=== PATIENT | male | born 1955 | race Caucasian/White ===

== ENCOUNTER 2023-11-22 06:46 | Day surgery (SDC) | payer MEDICARE, BC ==
--- NOTE | 2023-11-21 15:03 | HP ---
DATE: 11/22/2023 HISTORY OF PRESENT ILLNESS: Patient is a 68 year-old male. Presents with complaints of a rectal perianal abscess. It looks like this patient had been seen actually back in June for this and I believe that we had signed him up for surgery and I think the patient had to cancel for some personal issues. He currently has had a round of cephalexin from the [facility]. He states it has flared up twice now since June. He did say that incidentally he had had a Cologuard test that was negative. He is complaining of discharge and bleeding at times at the site now. He was noted to have a 9 o'clock, 2 cm indurated area and he also has some external hemorrhoids. This patient was evaluated by Dr. Sheng Estrada initially back in June. PAST MEDICAL HISTORY: Diabetes, hyperlipidemia, hypertension, bladder cancer, allergic rhinitis, insomnia, arthritis. CURRENT MEDICATIONS: Metformin, Zetia, Fenofibrate, Lantus, Lisinopril, metoprolol, empagliflozin, apixaban, vitamin B12, Albuterol, Alogliptin, isotretinoin. ALLERGIES: CODEINE, DEMEROL, SIMVASTATIN. PAST SURGERIES: Hand surgery, cardiac cath, colon resection for colon cancer, skin lesions, lithotripsy, knee scope, rotator repair, procedure for a bladder cancer. SOCIAL HISTORY: Current smoker. FAMILY HISTORY: None reported. REVIEW OF SYSTEMS: CONSTITUTIONAL: Denies fever or chills. CHEST: Denies shortness of breath. CVS: Denies chest pain. ABDOMEN: Denies abdominal pain. PHYSICAL EXAMINATION: GENERAL: No acute distress. CHEST: Nonlabored. No shortness of breath. CVS: Regular rate and rhythm. ABDOMEN: Soft. RECTAL: 9-10 o'clock anal fistula, mild tenderness. External hemorrhoids. No drainage seen today. IMPRESSION: ANAL FISTULA, EXTERNAL HEMORRHOIDS. PLAN: Excision of anal fistula with possible seton placement with Dr. Patricio. Sean. This report was dictated for Dr. Estrada by Rohini Bowling NP.
[2023-11-22] MEDS ORDERED: EXPAREL 133 MG/10 ML VIAL IJ ONE (06:47)
[2023-11-22] MEDS ORDERED: Lactated Ringers 1,000 ML IV ONE (07:09)
[2023-11-22] MEDS: Lactated Ringers 1,000 ML IV SCH (07:21)
[2023-11-22 07:50] VITALS: RESP 18
[2023-11-22] MEDS ORDERED: Sensorcaine 0.25% 10 ML ONE (09:10)
[2023-11-22] MEDS ORDERED: Xylocaine-Mpf 2% 5 Ml Vial ONE (09:16)
[2023-11-22] MEDS ORDERED: Zofran 4 MG/2 ML VIAL ONE (09:16)
[2023-11-22] MEDS ORDERED: Decadron 4 MG INJ ONE (09:16)
[2023-11-22] MEDS ORDERED: DIPRIVAN 200 MG/20 ML IV ONE (09:17)
[2023-11-22] MEDS ORDERED: Zemuron 100 MG/10 ML ONE (09:19)
[2023-11-22] MEDS ORDERED: BRIDION 200MG/2ML IV ONE (09:22)
[2023-11-22] MEDS ORDERED: SUBLIMAZE 100 MCG/2 ML ONE ×2 (09:23→10:02)
[2023-11-22] MEDS ORDERED: OFIRMEV 100 ML IV ONE (09:25)
[2023-11-22] MEDS ORDERED: LEVAQUIN IV ONE (10:07)
[2023-11-22] MEDS ORDERED: D5W IV ONE (10:07)
[2023-11-22 11:08] VITALS: TEMP 97.4
[2023-11-22 11:28] VITALS: BP 139/74; PULSE 66; O2SAT 94
--- NOTE | 2023-11-23 08:56 | OP ---
SURGERY DATE/TIME: 11/22/2023 0926 PREOPERATIVE DIAGNOSIS: Probable anal fistula. POSTOPERATIVE DIAGNOSIS: The patient had about 50 cutaneous/subcutaneous tracks, pores or cysts. PROCEDURES: 1) Exam under anesthesia of the anal area. 2) Evacuation or expression of about 50 perianal pustules. SURGEON: Sheng Estrada M.D. LEGAL JOB TITLES: Suman Prescott D.O., Family Practice Resident 3. ANESTHESIA: General. COMPLICATIONS: None. CONDITION: Stable. DESCRIPTION OF PROCEDURE: The patient taken to surgery. Lithotomy. Anal digital examination. He did not have any true fistulas. He had a couple of these that were infected. One was at 12 and one was at 9 but he had about 50 pustules. With care and patience, while the patient was asleep these were all expressed. He had some external anal tags that we left alone. He is really quite a bit better at this time about 90% better. I have left him script for Cipro as two of these were infected with a little bit of infected purulence. I think this will certainly help with a week course of Cipro but at least he has these cleaned up at this time.
== END 2023-11-22 11:30 | disposition home or self-care (01) ==
LOC: SDC 06:46
PROVIDERS: ATTEND Surgery
DX: K60.3 Anal fistula (principal); E11.9 Type 2 diabetes mellitus without complications; Z85.51 Personal history of malignant neoplasm of bladder; K64.4 Residual hemorrhoidal skin tags
CPT/HCPCS: 82947; 93005; J1100; J1956; J2405; J2704; J3010

== ENCOUNTER 2024-12-15 08:38 | Emergency (ER) | payer MEDICARE, BC ==
--- NOTE | 2024-12-15 08:46 | ERPHSYRPT ---
- History of Present Illness Time Seen by Provider: 12/15/24 08:46 Source: patient, family Exam Limitations: no limitations Physician History: This is a 69-year-old diabetic white male patient of Dr. Guadarrama who presents with a perianal/posterior perineal right area of tenderness that spontaneously drained today prior to arrival. He is afebrile. The drainage was initially bloody followed by drainage of a large amount of pus per his report. The pain was sharp. The symptoms did improve after the subcutaneous mass spontaneously drained just prior to arrival to the emergency department. Patient has a history of diabetes, hypertension, COPD and is on Eliquis. He denies chest pain. He denies shortness of breath Timing/Duration: day(s) (2), improved Severity: mild Modifying Factors: Improves With: nothing Associated Symptoms: denies symptoms Allergies/Adverse Reactions: codeine Adverse Reaction (Verified 11/22/23 07:15) meperidine HCl [From Demerol] Adverse Reaction (Verified 11/22/23 07:15) Jlfmcov-RNZ-VnH Reductase Inhibitor [Ivdsuax-Foz-Dpx Reductase Inhibitor] Adverse Reaction (Verified 11/22/23 07:15) demerol Adverse Reaction (Uncoded 11/22/23 07:15) Home Medications: Cyanocobalamin (Vitamin B-12) [Vitamin B-12] 500 mcg PO DAILY 12/01/15 [History] Ezetimibe 10 mg [Zetia 10 MG] 10 mg PO DAILY 12/01/15 [History] Fenofibrate,Micronized 145 mg* [Tricor 145 MG] 145 mg PO DAILY 12/01/15 [History] Insulin Glargine [Lantus Insulin] 40 units SQ HS 12/01/15 [History] lisinopriL [Lisinopril] 40 mg PO BID 12/01/15 [History] Albuterol Sulfate [Proair Respiclick] 2 puffs IH UD 11/16/23 [History] Alogliptin Benzoate [Alogliptin] 25 mg PO UD 11/16/23 [History] Apixaban [Eliquis] 5 mg PO UD 11/16/23 [History] Empagliflozin [Jardiance] 10 mg PO DAILY 11/16/23 [History] ISOtretinoin [Accutane] 40 mg PO UD 11/16/23 [History] Metformin HCl 500 mg [Glucophage 500 MG] 500 mg PO BID 11/16/23 [History] Metoprolol Tartrate 50 mg [Lopressor 50 MG] 50 mg PO UD 11/16/23 [History] Insulin Lispro [Humalog] 10 units SQ TID 11/22/23 [History] Hx Influenza Vaccination/Date Given: Yes Hx Pneumococcal Vaccination/Date Given: Yes Travel Risk - International Travel Have you traveled outside of the country in past 3 weeks: No - Emerging Infectious Disease Are you exhibiting symptoms associated with any current EIDs: No - Review of Systems Constitutional: No Symptoms Eyes: No Symptoms Ears, Nose, & Throat: No Symptoms Respiratory: No Symptoms Cardiac: No Symptoms Abdominal/Gastrointestinal: No Symptoms Genitourinary Symptoms: No Symptoms Musculoskeletal: No Symptoms Skin: Induration (Perianal right side without expressible pus or drainage) Neurological: No Symptoms Psychological: No Symptoms Endocrine: No Symptoms Hematologic/Lymphatic: No Symptoms Immunological/Allergic: No Symptoms All Other Systems: Reviewed and Negative - Past Medical History Pertinent Past Medical History: Yes Neurological History: Migraines ENT History: No Pertinent History Cardiac History: High Cholesterol, Hypertension Respiratory History: No Pertinent History, Sleep Apnea Endocrine Medical History: Diabetes Type II Musculoskeletal History: Arthritis, Degenerative Disk Disease, Fractures, Rheumatoid Arthritis GI Medical History: No Pertinent History History: No Pertinent History Psycho-Social History: Depression Male Reproductive Disorders: No Pertinent History Other Medical History: lt wrist, ring finer, little finger, metatarses. both little toes, metacarpels. bladder cancer - Past Surgical History Past Surgical History: Yes Neuro Surgical History: No Pertinent History Cardiac: No Pertinent History Respiratory: No Pertinent History Gastrointestinal: Appendectomy, Exploratory Laparoscopy Genitourinary: Other Musculoskeletal: Orthopedic Surgery Male Surgical History: No Pertinent History Other Surgical History: both ankles, both knees. exploratory Lap. rotator cuff. carpal tunnel. bladder cancer - Social History Smoking Status: Former smoker How long have you smoked: . Exposure to second hand smoke: No Drug Use: none - Nursing Vital Signs Nursing Vital Signs: Initial Vital Signs Temperature 97.9 F 12/15/24 08:48 Pulse Rate 78 12/15/24 08:48 Respiratory Rate 20 12/15/24 08:48 Blood Pressure 169/87 12/15/24 08:48 O2 Sat by Pulse Oximetry 96 12/15/24 08:48 Pain Scale Pain Intensity 7 - Physical Exam General Appearance: no apparent distress, alert, thin Eye Exam: PERRL/EOMI, eyes nml inspection Ears, Nose, Throat Exam: normal ENT inspection, moist mucous membranes Neck Exam: normal inspection, non-tender, supple, full range of motion Respiratory Exam: airway intact, No chest tenderness, No respiratory distress Gastrointestinal/Abdomen Exam: No tenderness Rectal Exam: other (right perianal induration, no odor, no redness, no expressible pus) Back Exam: normal inspection, normal range of motion, No CVA tenderness, No vertebral tenderness Extremity Exam: normal inspection, normal range of motion, pelvis stable Neurologic Exam: alert, oriented x 3, cooperative, 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, normal mood/affect, nml cerebellar function, nml station & gait, sensation nml Skin Exam: normal color, warm, dry Lymphatic Exam: No adenopathy SpO2 Interpretation: normal O2 Delivery: Room Air - Course Nursing assessment & vital signs reviewed: Yes - Progress Progress: improved, pain not gone completely, re-examined Progress Note: 12/15/24 09:43 I medical decision making in the assignment of low complexity to this patient's medical issue today is based on review of the patient's past medical history, reviewed patient's medication list, reviewed patient drug allergy list, history present illness and physical findings on examination. The workup does not require any radiographic or laboratory studies. Differential diagnosis includes but is not limited to cellulitis, abscess, indurated tissue This patient's abscess appears to have drained spontaneously. He has significantly less pain. There is no odor present. There is no evidence of cellulitis. The tissue is indurated. There is no expressible pus present. Together, we decided that the patient will be placed on antibiotics. Additionally, the patient will have antibiotics remotely sent to his pharmacy and he will undergo sitz bath 3 times a day with Epsom salts. He will return to the emergency department in 24 hours for recheck. Counseled pt/family regarding: diagnosis, need for follow-up Medical Desision Making - Diagnostic Testing Diagnostic test were ordered, analyzed, and reviewed by me: No - Risk of complications The pt has a mod risk of morbidity or mortality based on: Need for prescription drug management - Departure Departure Disposition: Home Clinical Impression: Perianal abscess Condition: Stable Critical Care Time: No Referrals: PARUL GUADARRAMA MD [Primary Care Provider] - Follow up/PCP as directed Additional Instructions: Use Tylenol for pain control. Sitz bath with Epsom salts and warm water 3 times a day. Take your antibiotics and other medication as prescribed. Return to the emergency department 24 hours for recheck of perianal drainage site Prescriptions: Smz/Tmp Ds Tablet [Bactrim Ds Tablet] 1 udtab PO BID #14 tablet
[2024-12-15 08:53] VITALS: TEMP 97.9
[2024-12-15 09:41] VITALS: RESP 18; O2SAT 94
[2024-12-15] MEDS: BACTRIM DS TABLET PO ONE (09:42)
[2024-12-15] MEDS ORDERED: BACTRIM DS TABLET PO ONE (09:42)
[2024-12-15 10:17] VITALS: BP 124/66; PULSE 63
== END 2024-12-15 10:23 | disposition home or self-care (01) ==
LOC: ED 08:38
DX: L02.215 Cutaneous abscess of perineum (principal); E11.9 Type 2 diabetes mellitus without complications; I10 Essential (primary) hypertension; Z79.01 Long term (current) use of anticoagulants; Z79.4 Long term (current) use of insulin; Z79.84 Long term (current) use of oral hypoglycemic drugs; Z79.899 Other long term (current) drug therapy
CPT/HCPCS: 99281; 99283; A9270-GY

== ENCOUNTER 2024-12-16 09:21 | Observation (INO) | payer MEDICARE, BC ==
--- NOTE | 2024-12-16 10:41 | ERPHSYRPT ---
- History of Present Illness Time Seen by Provider: 12/16/24 10:35 Source: patient Exam Limitations: no limitations Patient Subjective Stated Complaint: seen here yesterday and was told to come back to have wound looked at within 24 hours, so I came back Triage Nursing Assessment: "Wound" located on perineum between rectum and scrotum. Redness and swollen area noted. Tender to touch. Physician History: 69-year-old male history of diabetes presents to our ED for a "wound check". Patient was in our ED yesterday for evaluation of a perineal abscess that is spontaneously drained. Patient was started on Bactrim. Patient was advised to return to our ED for an evaluation. Timing/Duration: yesterday, day(s) (2 to 3 days) Severity: moderate Modifying Factors: Improves With: medication Associated Symptoms: denies symptoms Allergies/Adverse Reactions: codeine Adverse Reaction (Verified 12/16/24 10:06) meperidine HCl [From Demerol] Adverse Reaction (Verified 12/16/24 10:06) Dzcirdw-KOR-IzY Reductase Inhibitor [Slatgps-Xpj-Lge Reductase Inhibitor] Adverse Reaction (Verified 12/16/24 10:06) demerol Adverse Reaction (Uncoded 12/16/24 10:06) Home Medications: Cyanocobalamin (Vitamin B-12) [Vitamin B-12] 500 mcg PO DAILY 12/01/15 [History] Ezetimibe 10 mg [Zetia 10 MG] 10 mg PO DAILY 12/01/15 [History] Fenofibrate,Micronized 145 mg* [Tricor 145 MG] 145 mg PO DAILY 12/01/15 [History] Insulin Glargine [Lantus Insulin] 40 units SQ HS 12/01/15 [History] lisinopriL [Lisinopril] 40 mg PO BID 12/01/15 [History] Albuterol Sulfate [Proair Respiclick] 2 puffs IH UD 11/16/23 [History] Alogliptin Benzoate [Alogliptin] 25 mg PO UD 11/16/23 [History] Apixaban [Eliquis] 5 mg PO UD 11/16/23 [History] Empagliflozin [Jardiance] 10 mg PO DAILY 11/16/23 [History] ISOtretinoin [Accutane] 40 mg PO UD 11/16/23 [History] Metformin HCl 500 mg [Glucophage 500 MG] 500 mg PO BID 11/16/23 [History] Metoprolol Tartrate 50 mg [Lopressor 50 MG] 50 mg PO UD 11/16/23 [History] Insulin Lispro [Humalog] 10 units SQ TID 11/22/23 [History] Hx Tetanus, Diphtheria Vaccination/Date Given: Yes Hx Influenza Vaccination/Date Given: No Hx Pneumococcal Vaccination/Date Given: Yes Immunizations Up to Date: Yes Travel Risk - International Travel Have you traveled outside of the country in past 3 weeks: No - Emerging Infectious Disease Are you exhibiting symptoms associated with any current EIDs: No - Review of Systems Constitutional: No Symptoms, No Fever, No Chills Eyes: No Symptoms Ears, Nose, & Throat: No Symptoms Respiratory: No Symptoms, No Cough, No Dyspnea Cardiac: No Symptoms, No Chest Pain, No Edema, No Syncope Abdominal/Gastrointestinal: No Symptoms, No Abdominal Pain, No Nausea, No Vomiting, No Diarrhea Genitourinary Symptoms: No Symptoms, No Dysuria Musculoskeletal: No Symptoms, No Back Pain, No Neck Pain Skin: No Symptoms, No Rash Neurological: No Symptoms, No Dizziness, No Focal Weakness, No Sensory Changes Psychological: No Symptoms Endocrine: No Symptoms Hematologic/Lymphatic: No Symptoms Immunological/Allergic: No Symptoms All Other Systems: Reviewed and Negative - Past Medical History Pertinent Past Medical History: Yes Neurological History: Migraines ENT History: No Pertinent History Cardiac History: High Cholesterol, Hypertension Respiratory History: No Pertinent History, Sleep Apnea Endocrine Medical History: Diabetes Type II Musculoskeletal History: Arthritis, Degenerative Disk Disease, Fractures, Rheumatoid Arthritis GI Medical History: No Pertinent History History: No Pertinent History Psycho-Social History: Depression Male Reproductive Disorders: No Pertinent History Other Medical History: lt wrist, ring finer, little finger, metatarses. both little toes, metacarpels. bladder cancer - Past Surgical History Past Surgical History: Yes Neuro Surgical History: No Pertinent History Cardiac: No Pertinent History Respiratory: No Pertinent History Gastrointestinal: Appendectomy, Exploratory Laparoscopy Genitourinary: Other Musculoskeletal: Orthopedic Surgery Male Surgical History: No Pertinent History Other Surgical History: both ankles, both knees. exploratory Lap. rotator cuff. carpal tunnel. bladder cancer - Social History Smoking Status: Former smoker How long have you smoked: 10 years Exposure to second hand smoke: Yes Drug Use: none - Social Determinants of Health Will the patient participate in the screening: Yes Do you worry about a steady place to live?: No Do you have any problems with any of the following?: No known problems In the past 12 months,have you had to go without utilities?: No Transportation Issues: No Has anyone in your support network made you feel unsafe?: No Have you or anyone in your house had to go w/o enough food: No - Nursing Vital Signs Nursing Vital Signs: Initial Vital Signs Temperature 98.2 F 12/16/24 09:21 Pulse Rate 68 12/16/24 09:21 Respiratory Rate 18 12/16/24 09:21 Blood Pressure 133/80 12/16/24 09:21 O2 Sat by Pulse Oximetry 96 12/16/24 09:21 Pain Scale Pain Intensity 6 - Physical Exam General Appearance: no apparent distress, alert Eye Exam: PERRL/EOMI, eyes nml inspection Ears, Nose, Throat Exam: normal ENT inspection, TMs normal, pharynx normal, moist mucous membranes Neck Exam: normal inspection, non-tender, supple, full range of motion Respiratory Exam: normal breath sounds, lungs clear, airway intact, No respiratory distress Cardiovascular Exam: regular rate/rhythm, normal heart sounds, normal peripheral pulses Gastrointestinal/Abdomen Exam: soft, normal bowel sounds, No tenderness, No mass Back Exam: normal inspection, normal range of motion, No CVA tenderness, No vertebral tenderness Extremity Exam: normal inspection, normal range of motion, pelvis stable Neurologic Exam: alert, oriented x 3, cooperative, normal mood/affect, sensation nml, No motor deficits Skin Exam: normal color, warm, dry, No rash Lymphatic Exam: No adenopathy SpO2 Interpretation: normal SpO2: 96 O2 Delivery: Room Air - Course Nursing assessment & vital signs reviewed: Yes - CT Exams Abdomen/Pelvis CT Interpretation: Tele-radiologist Report (Lung granuloma, liver cyst, renal cyst, left adrenal adenoma, perineal abscess with reactive lymphadenopathy) Ordered Tests: Active Orders 24 hr Category Date Time Status NPO Diet 12/16/24 13:31 Active ABDOMEN AND PELVIS W CONTRAST [CT] Stat Exams 12/16/24 10:44 Completed CBC W DIFF Stat Lab 12/16/24 10:47 Completed CMP Stat Lab 12/16/24 10:47 Completed Transfer Order Routine Transfer 12/16/24 Ordered Medication Summary Generic Name Dose Route Start Last Admin Trade Name Frekiran PRN Reason Stop Dose Admin Piperacillin Sod/Tazobactam 100 mls @ 200 mls/hr 12/16/24 13:27 12/16/24 13:37 Sod 3.375 gm/ Sodium Chloride IV 12/16/24 13:56 200 mls/hr STAT ONE 200 mls/hr Administration Vancomycin HCl 1 gm in 200 mls @ 125 mls/hr 12/16/24 13:30 Vancomycin 1 Gram/200 Ml Bag IV 12/16/24 15:05 STAT ONE Discontinued Medications Generic Name Dose Route Start Last Admin Trade Name Freq PRN Reason Stop Dose Admin Sodium Chloride Confirm 12/16/24 13:36 Sodium Chloride 100ml Mini-Bag Plus Administered 12/16/24 13:37 Dose 100 mls @ ud IV .STK-MED ONE Piperacillin Sod/Tazobactam Sod Confirm 12/16/24 13:36 Piperacillin/Tazobactam Sodium 3.375 Gm Vial Administered 12/16/24 13:37 Dose 3.375 gm IV .STK-MED ONE Lab/Rad Data: Laboratory Result Diagrams 12/16/24 10:47 12/16/24 10:47 Laboratory Results 12/16/24 12/16/24 Range/Units 10:47 10:47 WBC 13.0 H (4.23-9.07) x10^3/uL RBC 4.60 L (4.63-6.08) x10^6/uL Hgb 13.6 L (13.7-17.5) g/dL Hct 41.5 (40.1-51.0) % MCV 90.2 (79.0-92.2) fL MCH 29.6 (25.7-32.2) pg MCHC 32.8 (32.3-36.5) g/dL RDW 14.9 H (11.6-14.4) % Plt Count 363 H (163-337) x10^3/uL MPV 8.9 L (9.4-12.4) fL Gran % 62.2 (34.0-67.9) % Immature Gran % (Auto) 0.3 (0.001-0.429) % Nucleat RBC Rel Count 0.0 (0.00-0.2) % Eos # (Auto) 0.20 (0.04-0.54) x10^3/uL Immature Gran # (Auto) 0.04 H (0.001-0.031) x10^3u/L Absolute Lymphs (auto) 3.79 H (1.32-3.57) x10^3/uL Absolute Monos (auto) 0.81 (0.30-0.82) x10^3/uL Absolute Nucleated RBC 0.00 (0.00-0.012) x10^3u/L Lymphocytes % 29.1 (21.8-53.1) % Monocytes % 6.2 (5.3-12.2) % Eosinophils % 1.5 (0.8-7.0) % Basophils % 0.7 (0.2-1.2) % Absolute Granulocytes 8.09 H (1.78-5.38) x10^3/uL Basophils # 0.09 H (0.01-0.08) x10^3/uL Sodium 140 (135-145) mmol/L Potassium 4.3 (3.5-5.1) mmol/L Chloride 103 (98-107) mmol/L Carbon Dioxide 27 (22-30) mmol/L Anion Gap 14.3 (5-15) MEQ/L BUN 11 (9-20) mg/dL Creatinine 1.04 (0.66-1.25) mg/dL Estimated GFR 76.8 ML/MIN Glucose 86 (74-106) mg/dL Calcium 9.1 (8.4-10.2) mg/dL Total Bilirubin 0.50 (0.2-1.3) mg/dL AST 30 (17-59) U/L ALT 21 (0-50) U/L Alkaline Phosphatase 77 (38-126) U/L Serum Total Protein 8.4 H (6.3-8.2) g/dL Albumin 4.1 (3.5-5.0) g/dL - Progress Progress: improved Progress Note: 12/16/24 10:46 I spoke to Gabe Estrada at 10:42 AM. We will obtain labs and a CT abdomen pelvis to further assess the perineal area. Will contact general surgery with results I spoke to Gabe Snyder at approximately 1:25 PM. Patient will be started on Zosyn and vancomycin. Patient has a history of MRSA. Patient was given crackers and peanut butter as he was observed to be hypoglycemic with a blood sugar in the 50s. Patient is now n.p.o. 12/16/24 13:[address] Carcamo who excepts admission at 1:45 PM. Plan of care discussed with patient. He agrees to admission at [facility] for further evaluation and treatment. 12/16/24 13:47 69-year-old male presents to emergency department for evaluation of a perineal infection. Patient has started taking Bactrim antibiotics. Today's physical exam reveals the perineum to be tender swollen and red. CT with contrast of the perineal area was completed. There is a 3 x 4 cm walled off abscess in the perineum. I discussed the case with general surgery. The abscess will need to be drained. Plan of care discussed with patient. He agrees to admission at [facility] for further evaluation and treatment. Patient does have a leukocytosis on laboratory workup. Antibiotics initiated. Patient NPO. Vital stable. Patient voices no other complaints or concerns at this time. Portions of this note were created with voice recognition technology. There may be grammatical, spelling, punctuation or sound alike errors Complexity of problem addressed is moderate acute complicated. No critical care time. Complex of data reviewed and analyzed is extensive. Test ordered test reviewed results analyzed and correlated clinically with history and physical exam. Risk of complication and or risk of morbidity/mortality of patient management is high. Patient requires hospitalization for further evaluation and treatment. Vital stable. Time spent to admit patient is approximately 15 minutes. Plan of care established for shared decision making. No social determinants of health present to impede follow-up. Portions of this note were created with voice recognition technology. There may be grammatical, spelling, punctuation or sound alike errors 12/16/24 13:52 Counseled pt/family regarding: lab results, diagnosis, rad results - Departure Departure Disposition: Observation Clinical Impression: Perineal abscess, Leukocytosis, Lung granuloma, Liver cyst, Renal cyst, Adenoma of left adrenal gland, Reactive lymphadenopathy Condition: Stable Critical Care Time: No Referrals: PARUL GUADARRAMA MD [Primary Care Provider] - Follow up/PCP as directed
[2024-12-16 10:48] LABS: Absolute Neutrophil Ct (ANC) 8.09 x10^3/uL (1.78-5.38); BASOPHIL % 0.7 % (0.2-1.2); Basophil (Absolute #) 0.09 x10^3/uL (0.01-0.08); Eosinophil % 1.5 % (0.8-7.0); Hematocrit 41.5 % (40.1-51.0); Hemoglobin 13.6 g/dL (13.7-17.5); IMMATURE GRAN # 0.04 x10^3u/L (0.001-0.031); IMMATURE GRAN % 0.3 % (0.001-0.429); Lymphocyte (Absolute #) 3.79 x10^3/uL (1.32-3.57); Lymphocytes % 29.1 % (21.8-53.1); Mean Cell Volume 90.2 fL (79.0-92.2); Mean Corpuscular Hemoglobin 29.6 pg (25.7-32.2); Mean Corpuscular Hgb Concent. 32.8 g/dL (32.3-36.5); Mean Platelet Volume 8.9 fL (9.4-12.4); Monocyte (Absolute #) 0.81 x10^3/uL (0.30-0.82); Monocytes % 6.2 % (5.3-12.2); Neutrophil % 62.2 % (34.0-67.9); Platelet Count 363 x10^3/uL (163-337); Red Cell Distribution Width 14.9 % (11.6-14.4)
[2024-12-16 11:07] LABS: ALBUMIN 4.1 g/dL (3.5-5.0); ANION GAP 14.3 MEQ/L (5-15); BILIRUBIN,TOTAL 0.5 mg/dL (0.2-1.3); Calcium 9.1 mg/dL (8.4-10.2); Creatinine 1 1.04 mg/dL (0.66-1.25); EST GLOMERULAR FILTRATION RATE 76.8 ML/MIN; Potassium 4.3 mmol/L (3.5-5.1); Total Protein 8.4 g/dL (6.3-8.2)
--- NOTE | 2024-12-16 13:00 | XRAY ---
Indication: Perineum pain. Bleeding. Multiple contiguous axial images obtained through the abdomen and pelvis using 80 cc Isovue 370 contrast. Comparison: None Lung bases demonstrates dependent atelectasis and tiny calcified granulomas. No infiltrate or effusion. Heart not enlarged with scattered coronary calcifications. Incidental mediastinal and bilateral hilar calcified nodes. Noncontrasted stomach and bowel loops appear nonobstructed. Appendectomy reported. Mild diffuse scattered colonic fecal debris throughout including rectum. Inferior right lobe liver demonstrates 9 mm cyst. Both kidneys enhance and excrete with a few left renal cysts, largest midpole measuring 1 cm. Incidental tiny hepatic/splenic calcified granulomas. Left adrenal gland demonstrates micro-nodularity, largest 1.3 cm, probable adenoma. No free fluid/air. Remaining liver, gallbladder, pancreas, spleen, adrenal glands, kidneys, ureters, and bladder are unremarkable. Mild scattered aortoiliac calcifications pain no AAA or pathologic retroperitoneal lymphadenopathy. Osseous structures intact with osteopenia, marked flowing osteophytes throughout the spine favoring diffuse idiopathic skeletal hyperostosis, mild levorotoscoliosis centered at L3, and moderate degenerative changes both hips. Perineum demonstrates cutaneous/subcutaneous induration presumed inflammatory/infectious. Also 3.0 x 2.2 x 4.2 cm walled off fluid collection, possible abscess. A few prominent bilateral inguinal lymph nodes, largest on the left measuring 2.3 x 1.7 cm presumed reactive. Impression: 1. Mild diffuse fecal stasis including rectum. 2. Perineum cutaneous/subcutaneous induration presumed inflammatory/infectious. Small walled off fluid collection as detailed, possible abscess. Probable reactive bilateral inguinal lymph nodes. 3. Chronic findings including hepatic cysts, left renal cysts, probable left adrenal adenoma, arteriosclerotic disease, chronic bony findings, and old granulomatous disease.
[2024-12-16] MEDS ORDERED: PIPERACILLIN/TAZOBACTAM IV ONE (13:36)
[2024-12-16] MEDS ORDERED: Sodium Chloride 100ML MINI-BAG PLUS 100 ML IV ONE (13:36)
[2024-12-16] MEDS: PIPERACILLIN/TAZOBACTAM 3.375 GM in Sodium Chloride 100ML MINI-BAG PLUS 100 ML IV ONE (13:37)
[2024-12-16] MEDS ORDERED: VANCOMYCIN 1 GRAM/200 ML BAG 1 GM/200 ML PIGGYBACK IV ONE (13:59)
[2024-12-16] MEDS: VANCOMYCIN 1 GRAM/200 ML BAG 1 GM/200 ML PIGGYBACK IV ONE (14:02)
[2024-12-16] MEDS ORDERED: Lactated Ringers 1,000 ML IV ONE (14:36)
--- NOTE | 2024-12-16 14:53 | PCM.HP ---
History of Present Illness - Chief Complaint Chief Complaint: Perineal abscess Date: 12/16/24 History of Present Illness: Mr.ELLINGTON BRIAN is a 69 year old male with PMHX of HTN, hyperlipidemia, migraines, sleep apnea, Type II DM, OA, DJD, RA, Depression, bladder cancer, and obesity. He presented to emergency department today for evaluation of a perineal infection. Patient has started taking Bactrim antibiotics. Today's physical exam reveals the perineum to be tender swollen and red. CT with contrast of the perineal area was completed. There is a 3 x 4 cm walled off abscess in the perineum. ER provider discussed the case with general surgery. The abscess wi ll need to be drained. Plan of care discussed with patient. Patient does have a leukocytosis on laboratory workup. Antibiotics initiated and will continue IP. Patient NPO. Vital stable. Patient voices no other complaints or concerns at this time. Pt to be taken to surgery today. - Review of Systems Constitutional: No Fever, No Chills Eyes: No Symptoms Ears, Nose, & Throat: No Symptoms Respiratory: No Cough, No Short Of Breath Cardiac: No Chest Pain, No Edema, No Syncope Abdominal/Gastrointestinal: No Abdominal Pain, No Nausea, No Vomiting, No Diarrhea Genitourinary Symptoms: No Dysuria Musculoskeletal: No Back Pain, No Neck Pain Skin: Other (perineum abcess), No Rash Neurological: No Dizziness, No Focal Weakness, No Sensory Changes Psychological: No Symptoms Endocrine: No Symptoms Hematologic/Lymphatic: No Symptoms Immunological/Allergic: No Symptoms Medications & Allergies Home Medications: Home Medication List Cyanocobalamin (Vitamin B-12) [Vitamin B-12] 500 mcg PO DAILY 12/01/15 [History Confirmed 11/22/23] Ezetimibe 10 mg [Zetia 10 MG] 10 mg PO DAILY 12/01/15 [History Confirmed 11/22/23] Fenofibrate,Micronized 145 mg* [Tricor 145 MG] 145 mg PO DAILY 12/01/15 [History Confirmed 11/22/23] Insulin Glargine [Lantus Insulin] 40 units SQ HS 12/01/15 [History Confirmed 11/22/23] lisinopriL [Lisinopril] 40 mg PO BID 12/01/15 [History Confirmed 11/22/23] Apixaban [Eliquis] 5 mg PO UD 11/16/23 [History Confirmed 11/22/23] Metformin HCl 500 mg [Glucophage 500 MG] 500 mg PO BID 11/16/23 [History Confirmed 11/22/23] Metoprolol Tartrate 50 mg [Lopressor 50 MG] 50 mg PO UD 11/16/23 [History Confirmed 11/22/23] Amlodipine Besylate 5 mg [Norvasc 5 mg] 5 mg PO DAILY 12/16/24 [History Confirmed 12/16/24] Cholecalciferol (Vitamin D3) [Vitamin D] 1,000 unit PO DAILY 12/16/24 [History Confirmed 12/16/24] Cyclobenzaprine HCl 5 mg PO TIDPRN PRN 12/16/24 [History Confirmed 12/16/24] Empagliflozin [Jardiance] 25 mg PO DAILY 12/16/24 [History Confirmed 12/16/24] Insulin Aspart [NovoLOG Insulin] 15 unit SQ TID 12/16/24 [History Confirmed 12/16/24] Magnesium Oxide 400 mg [Mag-Ox 400] 400 mg PO BID 12/16/24 [History Confirmed 12/16/24] Semaglutide [Ozempic] 0.5 mg SQ WEEKLY 12/16/24 [History Confirmed 12/16/24] Sildenafil Citrate 5 mg PO UD PRN 12/16/24 [History Confirmed 12/16/24] terbinafine HCL [Terbinafine HCl] 250 mg PO DAILY 12/16/24 [History Confirmed 12/16/24] Allergies/Adverse Reactions: Allergies Allergy/AdvReac Type Severity Reaction Status Date / Time codeine AdvReac Verified 12/16/24 10:06 meperidine HCl [From Demerol] AdvReac Verified 12/16/24 10:06 Eahvqzp-GVG-KcN Reductase AdvReac Verified 12/16/24 10:06 Inhibitor [Yybmybw-Sec-Xjr Reductase Inhibitor] demerol AdvReac Uncoded 12/16/24 10:06 - Past Medical History Past Medical History: Yes Neurological History: Migraines ENT History: No Pertinent History Cardiac History: High Cholesterol, Hypertension Respiratory History: No Pertinent History, Sleep Apnea Endocrine Medical History: Diabetes Type II Musculoskelatal History: Arthritis, Degenerative Disk Disease, Fractures, Rheumatoid Arthritis GI Medical History: No Pertinent History History: No Pertinent History Pyscho-Social History: Depression Male Reproductive Disorders: No Pertinent History Comment: lt wrist, ring finer, little finger, metatarses. both little toes, metacarpels. bladder cancer - Past Surgical History Past Surgical History: Yes Neuro Surgical History: No Pertinent History Cardiac History: No Pertinent History Respiratory Surgery: No Pertinent History GI Surgical History: Appendectomy, Exploratory Laparoscopy Genitourinary Surgical Hx: Other Musculskeletal Surgical Hx: Orthopedic Surgery Male Surgical History: No Pertinent History Other Surgical History: both ankles, both knees. exploratory Lap. rotator cuff. carpal tunnel. bladder cancer. kidney stone -. salivary gland removal Significant Family History: no pertinent family hx - Social History Smoking Status: Former smoker How long have you smoked: 10 years Exposure to second hand smoke: Yes Alcohol: Rarely Drug Use: none - Social Determinants of Health Will the patient participate in the screening: Yes Do you worry about a steady place to live?: No Do you have any problems with any of the following?: No known problems In the past 12 months,have you had to go without utilities?: No Have you or anyone in your house had to go without enough: No Transportation Issues: No Has anyone in your support network made you feel unsafe?: No - Physical Exam Vital Signs: Vital Signs - 24 hr Temp Pulse Resp BP BP Pulse Ox 12/16/24 14:20 97.7 F 80 16 147/72 93 L 12/16/24 14:00 96 12/16/24 14:00 78 16 124/72 94 L 12/16/24 13:30 74 120/62 94 L 12/16/24 13:00 76 129/74 98 12/16/24 12:30 74 116/73 96 12/16/24 12:04 78 16 134/77 93 L 12/16/24 11:00 69 123/70 96 12/16/24 10:05 16 133/80 12/16/24 09:21 98.2 F 68 18 133/80 96 General Appearance: no apparent distress, alert Neurologic Exam: alert, oriented x 3, cooperative, normal mood/affect, nml cerebellar function, nml station & gait, sensation nml, No motor deficits Eye Exam: PERRL/EOMI, eyes nml inspection Ears, Nose, Throat Exam: normal ENT inspection, TMs normal, pharynx normal, moist mucous membranes Neck Exam: normal inspection, non-tender, supple, full range of motion Respiratory Exam: normal breath sounds, lungs clear, No respiratory distress Cardiovascular Exam: regular rate/rhythm, normal heart sounds, normal peripheral pulses Gastrointestinal/Abdomen Exam: soft, normal bowel sounds, No tenderness, No mass Back Exam: normal inspection, normal range of motion, No CVA tenderness, No vertebral tenderness Extremity Exam: normal inspection, normal range of motion, pelvis stable Skin Exam: normal color, warm, dry, other (perineal abcess), No rash Lymphatic Exam: No adenopathy Results - Labs Lab/Micro Results: Lab Results-Last 24 Hours 12/16/24 12/16/24 Range/Units 10:47 10:47 WBC 13.0 H (4.23-9.07) x10^3/uL RBC 4.60 L (4.63-6.08) x10^6/uL Hgb 13.6 L (13.7-17.5) g/dL Hct 41.5 (40.1-51.0) % MCV 90.2 (79.0-92.2) fL MCH 29.6 (25.7-32.2) pg MCHC 32.8 (32.3-36.5) g/dL RDW 14.9 H (11.6-14.4) % Plt Count 363 H (163-337) x10^3/uL MPV 8.9 L (9.4-12.4) fL Gran % 62.2 (34.0-67.9) % Immature Gran % (Auto) 0.3 (0.001-0.429) % Nucleat RBC Rel Count 0.0 (0.00-0.2) % Eos # (Auto) 0.20 (0.04-0.54) x10^3/uL Immature Gran # (Auto) 0.04 H (0.001-0.031) x10^3u/L Absolute Lymphs (auto) 3.79 H (1.32-3.57) x10^3/uL Absolute Monos (auto) 0.81 (0.30-0.82) x10^3/uL Absolute Nucleated RBC 0.00 (0.00-0.012) x10^3u/L Lymphocytes % 29.1 (21.8-53.1) % Monocytes % 6.2 (5.3-12.2) % Eosinophils % 1.5 (0.8-7.0) % Basophils % 0.7 (0.2-1.2) % Absolute Granulocytes 8.09 H (1.78-5.38) x10^3/uL Basophils # 0.09 H (0.01-0.08) x10^3/uL Sodium 140 (135-145) mmol/L Potassium 4.3 (3.5-5.1) mmol/L Chloride 103 (98-107) mmol/L Carbon Dioxide 27 (22-30) mmol/L Anion Gap 14.3 (5-15) MEQ/L BUN 11 (9-20) mg/dL Creatinine 1.04 (0.66-1.25) mg/dL Estimated GFR 76.8 ML/MIN Glucose 86 (74-106) mg/dL Calcium 9.1 (8.4-10.2) mg/dL Total Bilirubin 0.50 (0.2-1.3) mg/dL AST 30 (17-59) U/L ALT 21 (0-50) U/L Alkaline Phosphatase 77 (38-126) U/L Serum Total Protein 8.4 H (6.3-8.2) g/dL Albumin 4.1 (3.5-5.0) g/dL - Radiology Impressions Radiology Exams & Impressions: Radiology Procedures Category Date Time Status ABDOMEN AND PELVIS W CONTRAST [CT] Stat Exams 12/16/24 10:44 Completed Assessment/Plan (1) Perineal abscess Current Visit: Yes Status: Acute Assessment & Plan: - Continue IV antibiotics - Surgery consulted in ER- taking to OR today - CBC, CMP reviewed - WBC 13 - Tele Code(s): L02.215 - CUTANEOUS ABSCESS OF PERINEUM (2) Leukocytosis Current Visit: Yes Status: Acute Assessment & Plan: - WBC 13.0 - trend - 2:2 abcess Code(s): D72.829 - ELEVATED WHITE BLOOD CELL COUNT, UNSPECIFIED (3) Type II diabetes mellitus Current Visit: Yes Status: Chronic Qualifiers: Diabetes mellitus terminal gauger insulin use: with nursing home use Assessment & Plan: - Accuchecks AC/HS - A1C - Mod dose humalog s/s (4) Hyperlipidemia Current Visit: Yes Status: Chronic Assessment & Plan: - cont. Tricor Code(s): E78.5 - HYPERLIPIDEMIA, UNSPECIFIED (5) Obesity (BMI 30.0-34.9) Current Visit: Yes Status: Chronic Assessment & Plan: - advised diet and exercise control VTE: SCD's PPI: Protonix Next of Kin: Arabella Medina- friend D/C plan: 1-2 days Code status: Full Code(s): E66.811 - OBESITY, CLASS 1 Telemedicine Encounter - Telemedicine Encounter Telemedicine Encounter: "The entirety of this encounter was performed via Telemedicine" This visit was performed using real-time audio and video connection between my location and thepatients locationwith the assistance of a surrogateat the patients location. Written or verbal consent was obtained from the patient/guardian to perform this visit usingsynchronoustelemedicine technology. Any patient questions regarding the telemedicine interaction were answered.
[2024-12-16] MEDS ORDERED: Pepcid 20 MG VIAL IV ONE (15:01)
[2024-12-16] MEDS ORDERED: Reglan 10 MG/2 ML ONE (15:01)
[2024-12-16] MEDS ORDERED: Amidate 20 MG/10 ML IV ONE (15:09)
[2024-12-16] MEDS ORDERED: dexAMETHasone sodium phosphate ONE (15:09)
[2024-12-16] MEDS ORDERED: SUBLIMAZE 100 MCG/2 ML ONE ×3 (15:09→16:07)
[2024-12-16] MEDS ORDERED: Xylocaine-Mpf 2% 5 Ml Vial ONE (15:09)
[2024-12-16] MEDS ORDERED: propofoL IV ONE (15:09)
[2024-12-16] MEDS ORDERED: TORAdol 30 mg Injection ONE (15:09)
[2024-12-16] MEDS ORDERED: Zofran 4 MG/2 ML VIAL ONE (15:09)
[2024-12-16] MEDS ORDERED: Quelicin Fliptop 200 MG/10 ML ONE (15:11)
[2024-12-16] MEDS ORDERED: HUMALOG SQ PRN (15:16)
[2024-12-16] MEDS ORDERED: Zofran 4 MG/2 ML VIAL IV PRN (15:24)
[2024-12-16] MEDS ORDERED: TYLENOL 325 MG PO PRN ×2 (15:24→16:55)
[2024-12-16] MEDS: PHARMACY DOSING REQUIRED: VANCOMYCIN IV STA (15:55)
[2024-12-16] MEDS ORDERED: FEVERALL 650 MG PR PRN (16:55)
[2024-12-16] MEDS ORDERED: Cyclobenzaprine 10 MG PO PRN (18:41)
[2024-12-16] MEDS: HOLD METFORMIN PRODUCTS FOR 48 HOURS MC SCH (19:00)
[2024-12-16] MEDS: PIPERACILLIN/TAZOBACTAM 4.5 GM in Sodium Chloride 100ML MINI-BAG PLUS 100 ML IV SCH (19:00)
[2024-12-16] MEDS ORDERED: HUMALOG ONE (19:06)
[2024-12-16] MEDS: HUMALOG SQ ONE (19:10)
[2024-12-16] MEDS ORDERED: Lantus Insulin SQ ONE (22:00)
[2024-12-16] MEDS ORDERED: Toprol Xl 50 MG PO ONE (22:21)
[2024-12-16] MEDS: VANCOMYCIN 1.25 GM/250 ML BAG 1.25 GM/250 ML PIGGYBACK IV SCH (22:32)
[2024-12-16] MEDS: Zestril 20 MG PO ONE (22:33)
[2024-12-16] MEDS: ELIQUIS 2.5 MG TABLET PO ONE (22:35)
[2024-12-16] MEDS: MAG-OX 400 PO ONE (22:36)
[2024-12-16] MEDS: Cyclobenzaprine 10 MG PO ONE (22:37)
[2024-12-16] MEDS: Lantus Insulin SQ ONE (22:50)
[2024-12-16] MEDS: Lopressor 50 MG PO ONE (22:52)
[2024-12-17] MEDS: Lactated Ringers 1,000 ML IV SCH (01:10)
[2024-12-17 06:06] LABS: Hematocrit 40.8 % (40.1-51.0); Hemoglobin 13.1 g/dL (13.7-17.5); Mean Cell Volume 91.9 fL (79.0-92.2); Mean Corpuscular Hemoglobin 29.5 pg (25.7-32.2); Mean Corpuscular Hgb Concent. 32.1 g/dL (32.3-36.5); Mean Platelet Volume 9.8 fL (9.4-12.4); Platelet Count 370 x10^3/uL (163-337); Red Blood Count 4.44 x10^6/uL (4.63-6.08); Red Cell Distribution Width 14.9 % (11.6-14.4); White Blood Count 12.9 x10^3/uL (4.23-9.07)
[2024-12-17 06:39] LABS: ALBUMIN 3.9 g/dL (3.5-5.0); ANION GAP 14.6 MEQ/L (5-15); BILIRUBIN,TOTAL 0.6 mg/dL (0.2-1.3); Calcium 8.5 mg/dL (8.4-10.2); Creatinine 1 1.28 mg/dL (0.66-1.25); EST GLOMERULAR FILTRATION RATE 59.8 ML/MIN; Potassium 4.6 mmol/L (3.5-5.1); Total Protein 7.9 g/dL (6.3-8.2)
[2024-12-17] MEDS ORDERED: SILDENAFIL CITRATE 20 MG PO PRN (07:22)
[2024-12-17] MEDS: Glucophage 500 MG PO SCH (08:29)
[2024-12-17] MEDS: HUMALOG SQ SCH (09:22)
[2024-12-17] MEDS: Acidophilus TABLET PO SCH (09:23)
[2024-12-17] MEDS: Lopressor 50 MG PO SCH (09:23)
[2024-12-17] MEDS: ENOXAPARIN SODIUM SQ SCH (09:23)
[2024-12-17] MEDS: Cyclobenzaprine 10 MG PO SCH (09:23)
[2024-12-17] MEDS: Protonix 20MG Tablet PO SCH (09:24)
[2024-12-17] MEDS: MAG-OX 400 PO SCH (09:24)
[2024-12-17] MEDS: VITAMIN D PO SCH (09:24)
[2024-12-17] MEDS: Vitamin B-12 500 MCG PO SCH (09:24)
[2024-12-17] MEDS: Zetia 10 MG PO SCH (09:24)
[2024-12-17] MEDS: Tricor 145 MG PO SCH (09:24)
[2024-12-17] MEDS: NORVASC 5 MG PO SCH (09:24)
[2024-12-17] MEDS: JARDIANCE PO SCH (09:26)
[2024-12-17] MEDS: lamISIL 250 MG PO SCH (09:26)
[2024-12-17] MEDS: Zinc Gluconate 50 MG PO SCH (09:26)
[2024-12-17] MEDS ORDERED: NON-FORMULARY ITEM (Cyclobenzaprine Hcl [Cyclobenzaprine Hcl] 5 MG Tablet) PO SCH (10:00)
[2024-12-17] MEDS: ELIQUIS 2.5 MG TABLET PO SCH (10:51)
--- NOTE | 2024-12-17 11:20 | PCM.NOTE ---
Date and Time: 12/17/24 1115 Subjective Assessment: 12/16/24 Mr.ELLINGTON BRIAN is a 69 year old male with PMHX of HTN, hyperlipidemia, migraines, sleep apnea, Type II DM, OA, DJD, RA, Depression, bladder cancer, and obesity. He presented to emergency department today for evaluation of a perineal infection. Patient has started taking Bactrim antibiotics. Today's physical exam reveals the perineum to be tender swollen and red. CT with contrast of the perineal area was completed. There is a 3 x 4 cm walled off abscess in the perineum. ER provider discussed the case with general surgery. The abscess will need to be drained. Plan of care discussed with patient. Patient does have a leukocytosis on laboratory workup. Antibiotics initiated and will continue IP. Patient NPO. Vital stable. Patient voices no other complaints or concerns at this time. Pt to be taken to surgery today. 12/17/24 Pt resting in bed. He states he feels fine. Awaiting surgery recs as to when pt is able to d/c. Cultures so far are negative. WBC 12.9. COntinue IV antibiotocs and narcotic pain med for perineal abcess. He denies any further concerns at this time. - Review of Systems Constitutional: No Fever, No Chills Eyes: No Symptoms Ears, Nose, & Throat: No Symptoms Respiratory: No Cough, No Short Of Breath Cardiac: No Chest Pain, No Edema, No Syncope Abdominal/Gastrointestinal: No Abdominal Pain, No Nausea, No Vomiting, No Diarrhea Genitourinary Symptoms: No Dysuria Musculoskeletal: No Back Pain, No Neck Pain Skin: Other (perineal abcess), No Rash Neurological: No Dizziness, No Focal Weakness, No Sensory Changes Psychological: No Symptoms Endocrine: No Symptoms Hematologic/Lymphatic: No Symptoms Immunological/Allergic: No Symptoms Objective Exam General Appearance: no apparent distress, alert, obese Neurologic Exam: alert, oriented x 3, cooperative, normal mood/affect, nml cerebellar function, sensation nml, No motor deficits Skin Exam: normal color, warm, dry, other (perineal abcess) Eye Exam: PERRL, EOMI, eyes nml inspection Ears, Nose, Throat Exam: normal ENT inspection, pharynx normal, moist mucous membranes Neck Exam: normal inspection, non-tender, supple, full range of motion Respiratory Exam: normal breath sounds, lungs clear, No respiratory distress Cardiovascular Exam: regular rate/rhythm, normal heart sounds Gastrointestinal/Abdomen Exam: soft, No tenderness, No mass Extremity Exam: normal inspection, normal range of motion Back Exam: normal inspection, normal range of motion, No CVA tenderness, No vertebral tenderness Male Genitalia Exam: deferred Rectal Exam: deferred Objective Data Vital Signs: Vital Signs - 24 hr Temp Pulse Resp BP BP Pulse Ox 12/17/24 10:32 94 L 12/17/24 07:34 95 12/17/24 07:28 97.6 F 72 16 135/71 96 12/17/24 07:00 97 12/17/24 04:00 97.2 F 72 18 124/58 96 12/17/24 00:00 97.8 F 87 20 143/65 98 12/16/24 19:30 97.8 F 87 20 115/58 97 12/16/24 18:05 97.6 F 83 16 109/51 93 L 12/16/24 17:45 97.6 F 81 16 138/69 93 L 12/16/24 17:05 94 L 12/16/24 16:45 97.4 F 82 16 140/66 90 L 12/16/24 14:35 97.7 F 80 16 147/72 93 L 12/16/24 14:21 97.7 F 80 16 147/72 93 L 12/16/24 14:20 97.7 F 80 16 147/72 93 L 12/16/24 14:00 96 12/16/24 14:00 78 16 124/72 94 L 12/16/24 13:30 74 120/62 94 L 12/16/24 13:00 76 129/74 98 12/16/24 12:30 74 116/73 96 12/16/24 12:04 78 16 134/77 93 L Pain Assessment - Last Documented Pain Intensity 0 Intake and Output: Intake & Output 12/14/24 12/15/24 12/16/24 12/17/24 11:59 11:59 11:59 11:59 Intake Total 3524 Balance 3524 Weight 114.3 kg 111.9 kg Lab Results: Lab Results-Last 24 Hours 12/16/24 12/17/24 12/17/24 Range/Units 10:57 06:00 06:00 WBC 12.9 H (4.23-9.07) x10^3/uL RBC 4.44 L (4.63-6.08) x10^6/uL Hgb 13.1 L (13.7-17.5) g/dL Hct 40.8 (40.1-51.0) % MCV 91.9 (79.0-92.2) fL MCH 29.5 (25.7-32.2) pg MCHC 32.1 L (32.3-36.5) g/dL RDW 14.9 H (11.6-14.4) % Plt Count 370 H (163-337) x10^3/uL MPV 9.8 (9.4-12.4) fL Sodium 138 (135-145) mmol/L Potassium 4.6 (3.5-5.1) mmol/L Chloride 101 (98-107) mmol/L Carbon Dioxide 27 (22-30) mmol/L Anion Gap 14.6 (5-15) MEQ/L BUN 18 (9-20) mg/dL Creatinine 1.28 H (0.66-1.25) mg/dL Estimated GFR 59.8 ML/MIN Glucose 148 H (74-106) mg/dL Hemoglobin A1c 6.91 H (4.5-6.0) % Calcium 8.5 (8.4-10.2) mg/dL Total Bilirubin 0.60 (0.2-1.3) mg/dL AST 28 (17-59) U/L ALT 18 (0-50) U/L Alkaline Phosphatase 71 (38-126) U/L Serum Total Protein 7.9 (6.3-8.2) g/dL Albumin 3.9 (3.5-5.0) g/dL Radiology Exams: Radiology Procedures Category Date Time Status ABDOMEN AND PELVIS W CONTRAST [CT] Stat Exams 12/16/24 10:44 Completed Multi-Disciplinary Progress Notes: Multi-Disciplinary Progress Notes 12/16/24 15:24 Pharmacy Note by Sylvain Franco Pharmacokinetic dosing service Date: 12/16/24 Time: Objective: Patient: Floor: Age: 69 yo Serum creatinine: 1.04 mg/dL Height: 74 Inches Weight (kg): 112 Diagnosis: Relevant medical/social history: Cultures and sensitivities: Other labs: Assessment: IBW (kg): 82.20 Dosing wt(kg): 112 Estimated Creatinine clearance (ml/min): 75.7 CRCL method: Cockcroft and Gault using ibw(default). Drug selected: Vancomycin Loading dose (mg): 0 Vd (liters): 84.0 (factor used: 0.75 L/kg) Elder (hr-1): 0.067 Half life (hrs): 10.35 Recommended dose: 1250 mg Interval: 12 hrs Infusion time (hrs): 1.5 Predicted peak (mcg/mL): 25.6 Predicted trough (mcg/mL): 12.67 Total body weight is being used for vancomycin dosing. Renal function is stable [ ] /unstable [ ] Recommendations: Give Vancomycin 1250 mg q 12 hrs with an expected Cpeak of 25.6 mcg/ml and an expected Ctrough of 12.67 mcg/ml Renal dosing of other antibiotics (review renal dosing of other medications and list guidelines here): Thank you for the consult, will continue to follow. TROUGH DUE 12/17/24 2130 Signature:[facility] Initialized on 12/16/24 15:24 - END OF NOTE Assessment/Plan (1) Perineal abscess Current Visit: Yes Status: Acute Code(s): L02.215 - CUTANEOUS ABSCESS OF PERINEUM (2) Leukocytosis Current Visit: Yes Status: Acute Code(s): D72.829 - ELEVATED WHITE BLOOD CELL COUNT, UNSPECIFIED (3) Type II diabetes mellitus Current Visit: Yes Status: Chronic Qualifiers: Diabetes mellitus snf insulin use: with watermelon inspector use (4) Hyperlipidemia Current Visit: Yes Status: Chronic Code(s): E78.5 - HYPERLIPIDEMIA, UNSPECIFIED (5) Obesity (BMI 30.0-34.9) Current Visit: Yes Status: Chronic Assessment & Plan: (1) Perineal abscess Current Visit: Yes Status: Acute Assessment & Plan: - Continue IV antibiotics - Surgery consulted in ER- taking to OR today - CBC, CMP reviewed - WBC 13 - Tele 12/17 - WBC 12.9 - CBC, CMP reviewed - Awaiting surgery recs for timeframe for d/c - Wound cultures negative so far - Continue IV antibiotics - narcotic pain control Code(s): L02.215 - CUTANEOUS ABSCESS OF PERINEUM (2) Leukocytosis Current Visit: Yes Status: Acute Assessment & Plan: - WBC 13.0 - trend - 2:2 abcess 12/17 - WBC 12.9- improved - see plan above Code(s): D72.829 - ELEVATED WHITE BLOOD CELL COUNT, UNSPECIFIED (3) Type II diabetes mellitus Current Visit: Yes Status: Chronic Qualifiers: Diabetes mellitus snf insulin use: with watermelon inspector use Assessment & Plan: - Accuchecks AC/HS - A1C 6.91- controlled - Mod dose humalog s/s (4) Hyperlipidemia Current Visit: Yes Status: Chronic Assessment & Plan: - cont. Tricor Code(s): E78.5 - HYPERLIPIDEMIA, UNSPECIFIED (5) Obesity (BMI 30.0-34.9) Current Visit: Yes Status: Chronic Assessment & Plan: - advised diet and exercise control VTE: SCD's PPI: Protonix Next of Kin: Arabella Medina- friend D/C plan: 1-2 days- pending surg recs Code status: Full Code(s): E66.811 - OBESITY, CLASS 1 Code(s): E66.811 - OBESITY, CLASS 1
[2024-12-17] MEDS ORDERED: NON-FORMULARY ITEM (Insulin Aspart** [Novolog Insulin**] 1 UNIT Unit) SQ SCH (15:00)
[2024-12-17] MEDS ORDERED: NORCO 5/325 MG PO PRN (16:57)
[2024-12-17] MEDS ORDERED: NON-FORMULARY ITEM (Lisinopril [Lisinopril] 40 MG Tablet) PO SCH (22:00)
[2024-12-17] MEDS ORDERED: NON-FORMULARY ITEM (Apixaban [Eliquis] 5 MG Tab.Ds.Pk) PO SCH (22:00)
[2024-12-17] MEDS: TROUGH DRUG LEVELS IJ ONE (22:51)
[2024-12-17] MEDS: Zestril 20 MG PO SCH (22:53)
[2024-12-17] MEDS: Lantus Insulin SQ SCH (22:56)
[2024-12-18 05:41] LABS: Hematocrit 39.3 % (40.1-51.0); Hemoglobin 12.6 g/dL (13.7-17.5); Mean Cell Volume 92.5 fL (79.0-92.2); Mean Corpuscular Hemoglobin 29.6 pg (25.7-32.2); Mean Corpuscular Hgb Concent. 32.1 g/dL (32.3-36.5); Mean Platelet Volume 9.9 fL (9.4-12.4); Platelet Count 335 x10^3/uL (163-337); Red Blood Count 4.25 x10^6/uL (4.63-6.08); Red Cell Distribution Width 15.4 % (11.6-14.4); White Blood Count 8.9 x10^3/uL (4.23-9.07)
[2024-12-18 06:10] LABS: ALBUMIN 3.7 g/dL (3.5-5.0); ANION GAP 14.5 MEQ/L (5-15); BILIRUBIN,TOTAL 0.5 mg/dL (0.2-1.3); Calcium 8.3 mg/dL (8.4-10.2); Creatinine 1 1.29 mg/dL (0.66-1.25); EST GLOMERULAR FILTRATION RATE 59.3 ML/MIN; PREALBUMIN 14.59 mg/dL (17.6-36.0); Potassium 4.2 mmol/L (3.5-5.1); Total Protein 7.5 g/dL (6.3-8.2)
[2024-12-18] MEDS: Sodium Chloride 0.9% 1000 ML 1,000 ML IV SCH (08:44)
[2024-12-18] MEDS: Tums EX 750 MG PO SCH (08:58)
[2024-12-18 11:20] VITALS: BP 131/59; PULSE 60; RESP 18; TEMP 96.3; O2SAT 96
--- NOTE | 2024-12-18 13:45 | PCM.DS ---
Discharge Summary Date of Admission: 12/16/24 14:12 Date of Discharge: 12/18/24 Admitting Physician: GILBERT HAMMOND MD Primary Care Provider: THIERRY,PARUL Allergies Allergies codeine Adverse Reaction (Verified 12/16/24 10:06) meperidine HCl [From Demerol] Adverse Reaction (Verified 12/16/24 10:06) Yjdglcd-NSA-FkR Reductase Inhibitor [Eulmkmg-Qdw-Hua Reductase Inhibitor] Adverse Reaction (Verified 12/16/24 10:06) demerol Adverse Reaction (Uncoded 12/16/24 10:06) Hospital Summary - Hospital Course Hospital Course: 12/16/24 Mr.ELLINGTON BRIAN is a 69 year old male with PMHX of HTN, hyperlipidemia, migraines, sleep apnea, Type II DM, OA, DJD, RA, Depression, bladder cancer, and obesity. He presented to emergency department today for evaluation of a perineal infection. Patient has started taking Bactrim antibiotics. Today's physical exam reveals the perineum to be tender swollen and red. CT with contrast of the perineal area was completed. There is a 3 x 4 cm walled off abscess in the perineum. ER provider discussed the case with general surgery. The abscess will need to be drained. Plan of care discussed with patient. Patient does have a leukocytosis on laboratory workup. Antibiotics initiated and will continue IP. Patient NPO. Vital stable. Patient voices no other complaints or concerns at this time. Pt to be taken to surgery today. 12/17/24 Pt resting in bed. He states he feels fine. Awaiting surgery recs as to when pt is able to d/c. Cultures so far are negative. WBC 12.9. COntinue IV antibiotocs and narcotic pain med for perineal abcess. He denies any further concerns at this time. 12/18/24 Pt resting in bed. Surgery rounded on pt and said OK to d/c today. They explained drain will fall out on its own. Pt 2 f/u in 2 weeks. Will d/ c with antibiotics and pain meds. Pt is feeling better. Denies any further concerns at this time. - Vitals & Intake/Output Vital Signs: Vital Signs Temperature 96.3 F 12/18/24 11:20 Pulse Rate 60 12/18/24 11:20 Respiratory Rate 18 12/18/24 11:20 Blood Pressure 131/59 12/18/24 11:20 O2 Sat by Pulse Oximetry 96 12/18/24 11:20 Intake & Output: Intake & Output 12/16/24 12/17/24 12/18/24 12/19/24 11:59 11:59 11:59 11:59 Intake Total 3524 1800 Output Total 750 Balance 3524 1050 Weight 114.3 kg 111.9 kg - Lab Result Diagrams: 12/18/24 05:34 12/18/24 05:34 Lab Results-Last 24 Hrs: Lab Results-Last 24 Hours 12/17/24 12/18/24 12/18/24 Range/Units 21:48 05:34 05:34 WBC 8.9 (4.23-9.07) x10^3/uL RBC 4.25 L (4.63-6.08) x10^6/uL Hgb 12.6 L (13.7-17.5) g/dL Hct 39.3 L (40.1-51.0) % MCV 92.5 H (79.0-92.2) fL MCH 29.6 (25.7-32.2) pg MCHC 32.1 L (32.3-36.5) g/dL RDW 15.4 H (11.6-14.4) % Plt Count 335 (163-337) x10^3/uL MPV 9.9 (9.4-12.4) fL Sodium 139 (135-145) mmol/L Potassium 4.2 (3.5-5.1) mmol/L Chloride 101 (98-107) mmol/L Carbon Dioxide 28 (22-30) mmol/L Anion Gap 14.5 (5-15) MEQ/L BUN 22 H (9-20) mg/dL Creatinine 1.29 H (0.66-1.25) mg/dL Estimated GFR 59.3 ML/MIN Glucose 124 H (74-106) mg/dL Calcium 8.3 L (8.4-10.2) mg/dL Total Bilirubin 0.50 (0.2-1.3) mg/dL AST 27 (17-59) U/L ALT 17 (0-50) U/L Alkaline Phosphatase 62 (38-126) U/L Serum Total Protein 7.5 (6.3-8.2) g/dL Albumin 3.7 (3.5-5.0) g/dL Prealbumin 14.59 L (17.6-36.0) mg/dL Vancomycin Trough 11.01 (10-20) ug/mL Micro Results-Entire Visit: Microbiology 12/16/24 15:41 Anaerobic Culture - Preliminary Perirectal NO GROWTH TO DATE 12/16/24 15:41 Wound Culture - Preliminary Perineum NO GROWTH TO DATE Accuchecks Date 12/18/24 Date 12/18/24 Date 12/17/24 Date 12/17/24 Time 11:19 Time 07:27 Time 22:20 Time 16:52 - Procedures and Test Procedures and Tests throughout Hospitalization: Therapy Orders & Screens 12/16/24 14:58 OT Screen per Nursing Assess ONCE Comment: Protocol Order Physician Instructions: Greater than 3 points order OT Admission Screening Reason For Exam: Triggered on Admission Diagnosis: Perineal abscess Open Wound/Cellutlitis/Pressure Ulcers: Yes Acute Fx/ORIF/Change in wt bearing status: No Severe MUSCULOSKELETAL pain: No ADL Dysfunction: No Acute CVA w/Hemiparesis/Hemiplegia: No Decreased Functional Mobility/Strength: No Sprain/Strain: No Acute Post-op Mobility Dysfunction: No Total Points: 5 PT Screen per Nursing Assess ONCE Comment: Protocol Order Physician Instructions: Greater than 3 points order PT Admission Screenin Reason For Exam: Triggered on Admission Diagnosis: Perineal abscess Open Wound/Cellutlitis/Pressure Ulcers: Yes Acute Fx/ORIF/Change in wt bearing status: No Severe MUSCULOSKELETAL pain: No ADL Dysfunction: No Acute CVA w/Hemiparesis/Hemiplegia: No Decreased Functional Mobility/Strength: No Sprain/Strain: No Acute Post-op Mobility Dysfunction: No Total Points: 5 RT Screen per Nursing Assess ONCE Comment: Protocol Order Physician Instructions: Greater than 3 points order RT Admission Screen Reason For Exam: Triggered on Admission Diagnosis: Perineal abscess Diagnosis: Perineal abscess Pneumonia: No Home O2: No Asthma: No CHF: No Home CPAP/BIPAP: Yes Home Nebs/MDI: Yes Total Points: 10 12/16/24 15:20 EKG ONCE Comment: Diagnosis: Perineal abscess 12/16/24 15:31 BiPap/CPAP ROUTINE Comment: Diagnosis: Perineal abscess 12/16/24 16:27 Incentive Spirometry Q1H Comment: post op orders Diagnosis: Perineal abscess 12/16/24 17:04 Oxygen Nasal Cannula 4 lpm Comment: Diagnosis: Perineal abscess Discharge Exam General Appearance: no apparent distress, alert Neurologic Exam: alert, oriented x 3, cooperative, normal mood/affect, nml cerebellar function, sensation nml, No motor deficits Eye Exam: PERRL, EOMI, eyes nml inspection Ears, Nose, Throat Exam: normal ENT inspection, pharynx normal, moist mucous membranes Neck Exam: normal inspection, non-tender, supple, full range of motion Respiratory Exam: normal breath sounds, lungs clear, No respiratory distress Cardiovascular Exam: regular rate/rhythm, normal heart sounds Gastrointestinal/Abdomen Exam: soft, No tenderness, No mass Male Genitalia Exam: deferred Rectal Exam: other (perineal lesion with drain) Back Exam: normal inspection, normal range of motion, No CVA tenderness, No vertebral tenderness Extremity Exam: normal inspection, normal range of motion Skin Exam: normal color, warm, dry Wound Assessment: Skin/Wound Assessment Wound/Incision Assessment Start: 12/16/24 14:21 Text: Status: Active Freq: Q4H Protocol: Document 12/18/24 12:00 AR (Rec: 12/18/24 12:36 AR [id number]) Wound/Incision Assessment Other Wound Assessment Shift Assessment Wound Type Incision Drainage Amount Minimal Drainage Description Serosanguineous General Appearance Draining Comment mercedes drain in place Final Diagnosis/Problem List - Final Discharge Diagnosis/Problem (1) Perineal abscess Current Visit: Yes Status: Acute Code(s): L02.215 - CUTANEOUS ABSCESS OF PERINEUM (2) Leukocytosis Current Visit: Yes Status: Acute Code(s): D72.829 - ELEVATED WHITE BLOOD CELL COUNT, UNSPECIFIED (3) Type II diabetes mellitus Current Visit: Yes Status: Chronic (4) Hyperlipidemia Current Visit: Yes Status: Chronic Code(s): E78.5 - HYPERLIPIDEMIA, UNS PECIFIED (5) Obesity (BMI 30.0-34.9) Current Visit: Yes Status: Chronic Assessment & Plan: 1) Perineal abscess Current Visit: Yes Status: Acute Assessment & Plan: - Continue IV antibiotics - Surgery consulted in ER- taking to OR today - CBC, CMP reviewed - WBC 13 - Tele 12/17 - WBC 12.9 - CBC, CMP reviewed - Awaiting surgery recs for timeframe for d/c - Wound cultures negative so far - Continue IV antibiotics - narcotic pain control 12/18 - WBC 8.9 - CBC, CMP reviewed - Per surgery ok to d/c today and f/u in 2 weeks, drain will fal lout, if not will d/c at appointment. - Will d/c with antibiotics Code(s): L02.215 - CUTANEOUS ABSCESS OF PERINEUM (2) Leukocytosis Current Visit: Yes Status: Acute Assessment & Plan: - WBC 13.0 - trend - 2:2 abcess 12/17 - WBC 12.9- improved - see plan above 12/18 - resolved Code(s): D72.829 - ELEVATED WHITE BLOOD CELL COUNT, UNSPECIFIED (3) Type II diabetes mellitus Current Visit: Yes Status: Chronic Qualifiers: Diabetes mellitus terminal manager insulin use: with terminal manager use Assessment & Plan: - Accuchecks AC/HS - A1C 6.91- controlled - Moderate dose humalog s/s (4) Hyperlipidemia Current Visit: Yes Status: Chronic Assessment & Plan: - cont. Tricor Code(s): E78.5 - HYPERLIPIDEMIA, UNSPECIFIED (5) Obesity (BMI 30.0-34.9) Current Visit: Yes Status: Chronic Assessment & Plan: - advised diet and exercise control Code(s): E66.811 - OBESITY, CLASS 1 - Discharge Discharge Date: 12/18/24 Disposition: Home, Self-Care Condition: Stable Prescriptions: Continue Ezetimibe 10 mg [Zetia 10 MG] 10 mg PO DAILY Cyanocobalamin (Vitamin B-12) [Vitamin B-12] 500 mcg PO DAILY lisinopriL [Lisinopril] 40 mg PO QHS Insulin Glargine [Lantus Insulin] 25 units SQ HS Fenofibrate,Micronized 145 mg* [Tricor 145 MG] 145 mg PO DAILY Metoprolol Tartrate 50 mg [Lopressor 50 MG] 50 mg PO BID Apixaban [Eliquis] 5 mg PO BID Metformin HCl 500 mg [Glucophage 500 MG] 1,000 mg PO BID Insulin Aspart [NovoLOG Insulin] 20 unit SQ TID terbinafine HCL [Terbinafine HCl] 250 mg PO DAILY Magnesium Oxide 400 mg [Mag-Ox 400] 400 mg PO BID Empagliflozin [Jardiance] 25 mg PO DAILY Cyclobenzaprine HCl 5 mg PO TID Cholecalciferol (Vitamin D3) [Vitamin D] 1,000 unit PO DAILY Amlodipine Besylate 5 mg [Norvasc 5 mg] 5 mg PO DAILY Sildenafil Citrate 5 mg PO UD PRN PRN Reason: ED Zinc Gluconate [Zinc] 50 mg PO DAILY Additional Instructions: You can buy probiotics over the counter if you want to take with antibiotics. Follow up with: MICHAEL PRO [ACTIVE STAFF] - 12/25/24 10:40 am ([place] [facility]) PARUL GUADARRAMA MD [Primary Care Provider] - 12/24/24 9:45 am ([place] [facility])
[2024-12-18] MEDS ORDERED: Cyclobenzaprine 10 MG PO SCH (17:00)
[2024-12-18] MEDS ORDERED: Glucophage 500 MG PO SCH (17:00)
--- NOTE | 2024-12-19 10:28 | OP ---
SURGERY DATE/TIME: 12/16/2024 [id number] PREOPERATIVE DIAGNOSIS: Perineal abscess. POSTOPERATIVE DIAGNOSIS: Perineal (anterior perirectal) abscess. PROCEDURE: Incision and drainage. SURGEON: Sheng Estrada MD ANESTHESIA: General. COMPLICATIONS: None. CONDITION: Stable. DRAINS: One. DESCRIPTION OF PROCEDURE AND FINDINGS: Patient brought to surgery, placed in lithotomy. General anesthetic. Routine prep and drape. An X was on the area, which was between the anus and the scrotum. split in the middle between these two. It felt like there was about 1 ounce of pus to the midportion of this abscess. The area was marked. The skin and subcutaneous were cauterized, and then it was through with a clamp. Foul drainage, about 1 ounce to 1-1/2 ounces, was obtained. In House Cra culture obtained. The tract was going straight back to the anus. This clearly was a perirectal abscess presenting in the patient's perineum. It was irrigated. A 1/4-inch Duvall drain was placed. It was secured with a single suture of 2-0 Prolene. Sterile dressing applied. Patient tolerated the procedure satisfactorily.
--- NOTE | 2024-12-19 10:52 | CONS ---
REASON FOR CONSULTATION: Some type of perineal abscess. HISTORY: The patient has had abscesses before. They have been perirectal in nature. I had lanced at least one of these. Somebody else has lanced at least one. He presents with that one right on his scrotum at this time. PHYSICAL EXAMINATION: He does have a perineal abscess. It is located in between the anus and the scrotum. It probably has about an ounce of purulence. It has not opened yet. It does not look like it is trying to advance or cause any major fasciitis or Valerio's . It does not extend into the scrotum or his testicles. IMPRESSION: He needs an I and D in the OR.
== END 2024-12-18 15:19 | disposition home or self-care (01) ==
LOC: ED 09:21 → MED SURG 14:12
PROVIDERS: ADMIT Internal Medicine; ATTEND Internal Medicine
DX: L02.215 Cutaneous abscess of perineum (principal); D72.829 Elevated white blood cell count, unspecified; E11.9 Type 2 diabetes mellitus without complications; E78.5 Hyperlipidemia, unspecified; E66.811 Obesity, class 1; I10 Essential (primary) hypertension; G47.33 Obstructive sleep apnea (adult) (pediatric); Z85.51 Personal history of malignant neoplasm of bladder; Z79.01 Long term (current) use of anticoagulants; Z79.899 Other long term (current) drug therapy
CPT/HCPCS: 36415; 74177; 80053; 80202; 83036; 84134; 85025; 85027; 87070; 87075; 93005; 93268; 94660; 94760; 96375; 99285; G0378; J0330; J1100; J1650; J1817; J1885; J2405; J2543; J2704; J3010; Q3014; A9270-GY; J3370